=== PATIENT | male | born 1950 | race Caucasian/White ===

== ENCOUNTER 2020-03-13 10:40 | Emergency (ER) | payer BC, MEDICARE ==
--- NOTE | 2020-03-13 11:37 | EDM.PDOC ---
ED HPI GENERAL MEDICAL PROBLEM - General Chief Complaint: Upper Extremity Injury/Pain Stated Complaint: SENT FROM [facility] Time Seen by Provider: 03/13/20 11:37 Source of Information: Reports: Patient, Old Records, RN, RN Notes Reviewed History Limitations: Reports: No Limitations - History of Present Illness INITIAL COMMENTS - FREE TEXT/NARRATIVE: Pt sent from [facility] with report that is has right elbow olecranon bursitis with cellulitis. The pt does not recall any trauma. 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 Denies fever, chills, nausea, or any other areas of skin redness. Hx of cellulitis of the leg. Denies Hx of MRSA. Onset: Gradual Duration: Constant, Getting Worse Location: Reports: Upper Extremity, Right Quality: Reports: Ache, Pressure Severity: Moderate Improves with: Reports: None Worsens with: Reports: Movement Associated Symptoms: Reports: No Other Symptoms - Related Data Allergies Allergy/AdvReac Type Severity Reaction Status Date / Time No Known Allergies Allergy Verified 03/13/20 11:04 Home Meds: Home Meds Bisoprolol/Hydrochlorothiazide [Ziac 2.5-6.25 MG] 1 tab PO DAILY 01/12/14 [History] Fenofibrate 01/12/14 [History] Rosuvastatin Calcium [Crestor] 20 01/12/14 [History] Past Medical History - Past Health History Medical/Surgical History: Denies Medical/Surgical History HEENT History: Reports: None Cardiovascular History: Reports: Hypertension Respiratory History: Reports: None Gastrointestinal History: Reports: None Genitourinary History: Reports: None Musculoskeletal History: Reports: None Neurological History: Reports: None Psychiatric History: Reports: None Endocrine/Metabolic History: Reports: None Hematologic History: Reports: None Immunologic History: Reports: None Oncologic (Cancer) History: Reports: None Dermatologic History: Reports: Cellulitis - Infectious Disease History Infectious Disease History: Reports: None - Past Surgical History Head Surgeries/Procedures: Reports: None Social & Family History - Family History Family Medical History: Noncontributory - Tobacco Use Smoking Status *Q: Never Smoker Second Hand Smoke Exposure: No - Caffeine Use Caffeine Use: Reports: Coffee - Recreational Drug Use Recreational Drug Use: No - Living Situation & Occupation Occupation: Other ([employer]) Review of Systems - Review of Systems Review Of Systems: Comprehensive ROS is negative, except as noted in HPI. ED EXAM, GENERAL - Physical Exam Exam: See Below Exam Limited By: No Limitations General Appearance: Alert, WD/WN, No Apparent Distress Respiratory/Chest: No Respiratory Distress Cardiovascular: Normal Peripheral Pulses Extremities: Normal Range of Motion (with painful ROM at Rt elbow), Normal Capillary Refill, Redness, Other (Focal swelling overlying the right olecranon bursa consistent with a mild-mod. bursitis, no large enough for drainage, and not advisable for drainage due to overlying erythema. ). No: Increased Warmth Neurological: Alert, Oriented, No Motor/Sensory Deficits Psychiatric: Normal Affect, Normal Mood Skin Exam: Warm, Dry Course - Vital Signs Last Recorded V/S: Last Vital Signs Temp 98.4 F 03/13/20 11:06 Pulse 60 03/13/20 11:06 Resp 16 03/13/20 11:06 BP 156/86 H 03/13/20 11:06 Pulse Ox 100 03/13/20 11:06 - Orders/Labs/Meds Orders: Active Orders 24 hr Category Date Time Status Peripheral IV Care [RC] . DIRECTED Care 03/13/20 11:38 Active CBC WITH AUTO DIFF [HEME] Stat Lab 03/13/20 11:50 Received COMPREHENSIVE METABOLIC PN,CMP [CHEM] Stat Lab 03/13/20 11:50 Received CRP [C-REACTIVE PROTEIN] [CHEM] Stat Lab 03/13/20 11:50 Received Sodium Chloride 0.9% [Saline Flush] Med 03/13/20 11:38 Active 10 ml FLUSH ASDIRECTED PRN ceFAZolin [Ancef] 2 gm Med 03/13/20 11:39 Active Premix Bag 1 bag IV ONETIME Peripheral IV Insertion Adult [OM.PC] Stat Oth 03/13/20 11:38 Ordered Medication Orders Cefazolin Sodium/Dextrose 2 gm (/ Premix) 50 mls @ 100 mls/hr IV ONETIME ONE Stop: 03/13/20 12:08 Last Admin: 03/13/20 11:57 Dose: 100 mls/hr Documented by: PINDREN Sodium Chloride (Saline Flush) 10 ml FLUSH ASDIRECTED PRN PRN Reason: Keep Vein Open Meds: Medications Generic Name Dose Route Start Last Admin Trade Name Freq PRN Reason Stop Dose Admin Cefazolin Sodium/Dextrose 2 gm 50 mls @ 100 mls/hr 03/13/20 11:39 03/13/20 11:57 / Premix IV 03/13/20 12:08 100 mls/hr ONETIME ONE Administration Sodium Chloride 10 ml 03/13/20 11:38 Saline Flush FLUSH ASDIRECTED PRN Keep Vein Open - Re-Assessments/Exams Free Text/Narrative Re-Assessment/Exam: 03/13/20 12:06 I advised the pt that I do not think it is advisable to drain the right olecranon bursa at this time, and it has overlying cellulitis without appearance of an outright septic bursa due to the minimal pain, mild swelling, and lack of increased warmth to the area. I believe the bursitis is too small or at least borderline size to consider draining anyway, and doing so may introduce bacteria into the bursa fluid. The pt acknowledges understanding and agrees with the treatment plan. Departure - Departure Time of Disposition: 12:45 Disposition: Home, Self-Care 01 Condition: Good Clinical Impression: Olecranon bursitis of right elbow, Cellulitis of right elbow - Discharge Information *PRESCRIPTION DRUG MONITORING PROGRAM REVIEWED*: Not Applicable *COPY OF PRESCRIPTION DRUG MONITORING REPORT IN PATIENT SUSHILA: Not Applicable Instructions: Elbow Bursitis, Cellulitis, Adult Forms: ED Department Discharge, ED Return to Work/School Form Additional Instructions: Rx: Cephalexin 500mg Rx: Bactrim DS Use GAYE wrap compression to right elbow to reduce pain and swelling. Follow up in clinic in 2 to 3 days for recheck. Sepsis Event Note (ED) - Evaluation Sepsis Screening Result: No Definite Risk - Focused Exam Vital Signs: Vital Signs Temp Pulse Resp BP Pulse Ox 03/13/20 11:06 98.4 F 60 16 156/86 H 100 - My Orders Last 24 Hours: My Active Orders 03/13/20 11:38 Peripheral IV Care [RC] . DIRECTED Sodium Chloride 0.9% [Saline Flush] 10 ml FLUSH ASDIRECTED PRN Peripheral IV Insertion Adult [OM.PC] Stat 03/13/20 11:39 ceFAZolin [Ancef] 2 gm Premix Bag 1 bag IV ONETIME 03/13/20 11:50 CBC WITH AUTO DIFF [HEME] Stat COMPREHENSIVE METABOLIC PN,CMP [CHEM] Stat CRP [C-REACTIVE PROTEIN] [CHEM] Stat - Assessment/Plan Last 24 Hours: My Active Orders 03/13/20 11:38 Peripheral IV Care [RC] . DIRECTED Sodium Chloride 0.9% [Saline Flush] 10 ml FLUSH ASDIRECTED PRN Peripheral IV Insertion Adult [OM.PC] Stat 03/13/20 11:39 ceFAZolin [Ancef] 2 gm Premix Bag 1 bag IV ONETIME 03/13/20 11:50 CBC WITH AUTO DIFF [HEME] Stat COMPREHENSIVE METABOLIC PN,CMP [CHEM] Stat CRP [C-REACTIVE PROTEIN] [CHEM] Stat
[2020-03-13] MEDS ORDERED: Sodium Chloride 0.9% 10 ML Syringe FLUSH PRN (11:38)
[2020-03-13] MEDS ORDERED: ceFAZolin 2 GM in Premix Bag 1 BAG IV ONE (11:39)
[2020-03-13 12:20] LABS: ANION GAP 14.7 mEq/L (7-13); CHLORIDE,CL 103 mmol/L (98-107); SODIUM,NA 140 mmol/L (136-145)
== END 2020-03-13 12:40 | disposition home or self-care (01) ==
LOC: DL.ED 10:40
DX: M70.21 Olecranon bursitis, right elbow (principal); L03.113 Cellulitis of right upper limb; I10 Essential (primary) hypertension; Z79.899 Other long term (current) drug therapy
CPT/HCPCS: 36415; 80053; 85025; 86140; 96365; 99283; J0690